=== PATIENT | male | born 1980 | race Caucasian/White ===

== ENCOUNTER 2024-04-03 07:20 | Emergency (ER) | payer MEDICARE, SELFPAY ==
[2024-04-03 07:29] VITALS: BP 146/106; PULSE 99; RESP 19; TEMP 36.8; O2SAT 100
--- NOTE | 2024-04-03 07:56 | ED.GENADULT ---
HPI - General Adult General Chief complaint: Wound/Laceration Stated complaint: r arm lac Time Seen by Provider: 04/03/24 07:35 History of Present Illness HPI narrative: 43-year-old male presenting to the emergency department for evaluation for a laceration to his right forearm. Patient was using a drink box mechanic when he accidentally cut his arm. Patient denies any numbness or weakness. Patient states this was an accident and there was no intended self-harm. Patient is unsure of his tetanus updated. Related Data Allergies Allergy/AdvReac Type Severity Reaction Status Date / Time No Known Allergies Allergy Unknown Verified 04/03/24 07:36 Review of Systems Review of Systems: All systems reviewed & are unremarkable except as noted in HPI and below Exam Narrative: APPEARANCE: Well appearing, no pain, no distress, well-nourished. HEAD: normocephalic, atraumatic. EYES: PERRLA/EOMI, conjunctivae clear. NOSE: Normal no drainage EARS:TMS clear with good light reflex. THROAT: Pharynx clear, no exudate. NECK: Supple. No adenopathy, no masses. RESPIRATORY: Airway patent, respirations nonlabored. Clear to auscultation bilaterally, no rales, rhonchi, wheezing. CARDIOVASCULAR: Regular rate and rhythm without murmurs rubs or gallops. ABDOMINAL: Soft, nontender, nondistended, normal bowel sounds MUSCULOSKELETAL: Moves all extremities. Strength/ROM intact, No edema, No calf tenderness. NEURO: Alert. Cranial nerves II through XII intact. Grossly intact SKIN: Laceration to right for, adipose tissue is visible with no evidence of vascular or structural injury Course Vital Signs Vital signs: Vital Signs Temperature 98.2 F 04/03/24 07:29 Pulse Rate 99 04/03/24 07:29 Respiratory Rate 19 04/03/24 07:29 Blood Pressure 146/106 H 04/03/24 07:29 Pulse Oximetry 100 04/03/24 07:29 Oxygen Delivery Room Air 04/03/24 07:29 Temperature 98.2 F 04/03/24 07:29 Pulse Rate 82 04/03/24 08:38 Respiratory Rate 19 04/03/24 08:38 Blood Pressure 130/80 04/03/24 08:38 Pulse Oximetry 100 04/03/24 08:38 Oxygen Delivery Room Air 04/03/24 07:29 Procedures Laceration Laceration 1: Time: 08:20 Site: upper extremity Side (If applicable): right Size (cm): 6 Description: linear Depth: simple, single layer Local Anesthetic: lidocaine 1% and with epi Amount of anesthesia used (mL): 6 Pre-repair: wound explored, irrigated and irrigated extensively ====== Skin Level ====== Size (cm): 4-0 Number of sutures: 7 Technique: simple, interrupted ====== Subcutaneous Layer ====== ====== Muscle Layer ====== ====== Tendon Layer ====== Medical Decision Making MDM Narrative Medical decision making narrative: 43-year-old male present to the emergency department for evaluation for a laceration to right arm. Laceration was repaired as described in the procedure note and patient was given his tetanus in the ED. Differential Diagnosis Differential Diagnosis: Arm laceration, tendon injury, vascular injury Vital Signs Vital Signs: Vital Signs Temperature 98.2 F 04/03/24 07:29 Pulse Rate 99 04/03/24 07:29 Respiratory Rate 19 04/03/24 07:29 Blood Pressure 146/106 H 04/03/24 07:29 Pulse Oximetry 100 04/03/24 07:29 Oxygen Delivery Room Air 04/03/24 07:29 Temperature 98.2 F 04/03/24 07:29 Pulse Rate 82 04/03/24 08:38 Respiratory Rate 19 04/03/24 08:38 Blood Pressure 130/80 04/03/24 08:38 Pulse Oximetry 100 04/03/24 08:38 Oxygen Delivery Room Air 04/03/24 07:29 Discharge Plan Discharge Clinical Impression: Laceration Patient Disposition: Home, Self-Care Condition: Stable Instructions: Antibiotic Form, Care For Your Stitches (ED), Laceration (ED) Additional Instructions: Sutures will need to be removed in 7-10 days. Have close follow-up with your primary care physicia
[2024-04-03] MEDS: TETANUS,DIPHTHERIA,AC PERTUSSIS ADULT (0.5 ML) BOOSTRIX IM (08:00)
[2024-04-03 08:38] VITALS: BP 130/80; PULSE 82; RESP 19; O2SAT 100
== END 2024-04-03 08:39 | disposition home or self-care (01) ==
PROVIDERS: Emergency Provider Emergency Medicine
DX: S51.811A Laceration without foreign body of right forearm, initial encounter (principal); Z23 Encounter for immunization; W27.8XXA Contact with other nonpowered hand tool, initial encounter
CPT/HCPCS: 12002; 90471; 90715; 99283